=== PATIENT | male | born 1980 | race Caucasian/White ===

== ENCOUNTER 2021-05-05 18:12 | Emergency (ER) | payer OTHER, MEDICARE ==
[~2021-05-05 18:12] MED LIST: CLEOCIN HCL300 MG PO
[2021-05-05] MEDS ORDERED: NORFLEX 100 MG100 MG PO (21:41)
[2021-05-05] MEDS ORDERED: MEDROL DOSEPAK 24 MG PO (21:41)
[2021-05-05] MEDS ORDERED: IBUPROFEN600 MG PO (21:41)
== END 2021-05-05 21:45 | disposition home or self-care (01) ==
LOC: ER1 18:12
DX: M54.2 Cervicalgia (principal); V49.40XA Driver injured in collision with unspecified motor vehicles in traffic accident, initial encounter; Y92.410 Unspecified street and highway as the place of occurrence of the external cause
CPT/HCPCS: 72040; 99283